=== PATIENT | female | born 1985 | race Caucasian/White ===

== ENCOUNTER 2019-11-08 16:39 | Emergency (ER) | payer OTHER, SELFPAY ==
[2019-11-08 16:40] VITALS: BP 109/71; PULSE 71; RESP 18; TEMP 36.8; O2SAT 100
--- NOTE | 2019-11-08 17:40 | ED.GENADULT ---
HPI - General Adult General Chief complaint: Extremity Injury, Upper <Bentley Wick PA-C - Last Filed: 11/08/19 17:43> Stated complaint: Bilateral arm pain <Bentley Wick PA-C - Last Filed: 11/08/19 17:43> Time Seen by Provider: 11/08/19 16:45 <Bentley Wick PA-C - Last Filed: 11/08/19 17:43> Source: patient and family <Bentley Wick PA-C - Last Filed: 11/08/19 17:43> Mode of arrival: ambulatory <Bentley Wick PA-C - Last Filed: 11/08/19 17:43> Limitations: no limitations <Bentley Wick PA-C - Last Filed: 11/08/19 17:43> History of Present Illness HPI narrative: Patient is a 33-year-old female who presents to emergency department for evaluation of bilateral upper extremity pain which is currently being evaluated by primary care had nerve conduction test performed by orthopedic surgery. Patient has been taking diclofenac with some improvement. Patient notes moderate aching pain to the bilateral upper extremities with some tingling. Patient denies new injury or trauma or change in degree of symptoms. Patient on arrival is in no distress <Bentley Wick PA-C - Last Filed: 11/08/19 17:43> Related Data Home medications: Home Medications Medication Instructions Recorded Confirmed diclofenac potassium 11/08/19 levothyroxine 11/08/19 <Bentley Wick PA-C - Last Filed: 11/08/19 17:43> Allergies/adverse reactions: Allergies Allergy/AdvReac Type Severity Reaction Status Date / Time No Known Drug Allergies Allergy Unknown Unknown Verified 11/08/19 16:47 <Bentley Wick PA-C - Last Filed: 11/08/19 17:43> Review of Systems Review of Systems: All systems reviewed & are unremarkable except as noted in HPI and below <Bentley Wick PA-C - Last Filed: 11/08/19 17:43> [facility] Social History Social History: Social History (Updated 11/08/19 @ 17:41 by Bentley Wick PA-C) Smoking status: Never smoker <ANATOLY Neely Last Filed: 11/08/19 17:43> Exam Narrative: Exam Narrative: GENERAL: Well-appearing, well-nourished, and in no acute distress. HEAD: Normocephalic, atraumatic. EYES: PERRLA and EOMI. ENT: Nares clear, no rhinorrhea or epistaxis. Mucous membranes moist. NECK: Supple. No adenopathy or masses. CHEST: Clear to auscultation. No respiratory distress. No wheezes rales or rhonchi HEART: Regular rate and rhythm. No murmur heard. Normal peripheral pulses. EXTREMITIES: Normal range of motion. No edema. SKIN: Warm, dry, no rash. NEURO: No focal deficits. Alert and oriented x3. Motor and sensory intact and symmetrical in the extremities. Neurovascularly intact PSYCH: Normal mood and affect. <ANATOLY Neely Last Filed: 11/08/19 17:43> Course Course Emergency Course: Patient in the room in no distress aware of case findings treatment plan and diagnosis agreeing to follow-up as directed or to return if symptoms worsen or concerns <ANATOLY Neely Last Filed: 11/08/19 17:43> Vital Signs Vital signs: Vital Signs Temperature 36.8 C 11/08/19 16:40 Pulse Rate 11/08/19 16:40 Respiratory Rate 18 11/08/19 16:40 Blood Pressure 109/71 11/08/19 16:40 Pulse Oximetry 100 11/08/19 16:40 Temperature 36.8 C 11/08/19 16:40 Pulse Rate 11/08/19 16:40 Respiratory Rate 18 11/08/19 16:40 Blood Pressure 109/71 11/08/19 16:40 Pulse Oximetry 100 11/08/19 16:40 <ANATOLY Neely Last Filed: 11/08/19 17:43> Vital Signs Temperature 36.8 C 11/08/19 16:40 Pulse Rate 71 11/08/19 16:40 Respiratory Rate 18 11/08/19 16:40 Blood Pressure 109/71 11/08/19 16:40 Pulse Oximetry 100 11/08/19 16:40 Temperature 36.8 C 11/08/19 16:40 Pulse Rate 71 11/08/19 16:40 Respiratory Rate 18 11/08/19 16:40 Blood Pressure 109/71 11/08/19 16:40 Pulse Oximetry 100 11/08/19 16:40 <Liz Lowery MD - Last Jairo
== END 2019-11-08 18:05 | disposition home or self-care (01) ==
PROVIDERS: Emergency Provider Emergency Medicine; PCP Family Medicine
DX: M79.602 Pain in left arm (principal); M79.601 Pain in right arm
CPT/HCPCS: 99283

== ENCOUNTER 2021-07-21 08:21 | Observation (INO) | payer OTHER, SELFPAY ==
[2021-07-21] VITALS (111 sets, daily range): BP systolic 90–102; BP diastolic 49–56; PULSE 72–115; RESP 16; TEMP 36.4–37.4; O2SAT 90–100; BMI 21.3
--- NOTE | ~2021-07-21 | US_ITS ---
US abdomen limited DATE: 07/21/2021 11:59 INDICATION: Abdominal pain. Elevated white blood cell count. TECHNIQUE: Real-time imaging of liver, pancreas, gallbladder, right lower quadrant COMPARISON: None FINDINGS: No hepatic space-occupying mass lesion. Normal hepatopedal portal venous flow direction. No pancreatic space-occupying mass lesion or pancreatic duct dilatation. No gallstones or gallbladder wall thickening. The technologist reports positive sonographic Richmond's sign. The common bile duct measures 5.4 mm, within normal range. The appendix is not visualized likely due to interference from bowel gas. IMPRESSION: Technologist reports positive sonographic [place] sign, but no gallstones or gallbladder w all thickening are identified. Common bile duct measures 5.4 mm, normal The appendix is not visualized likely due to interference from bowel gas; consider CT abdomen pelvis for more definitive evaluation of the appendix as clinically appropriate. Reviewed, dictated and finalized at [facility] Reviewed, dictated and finalized at [facility]. [employer] IMPRESSION: Technologist reports positive sonographic [place] sign, but no galls tones or gallbladder wall thickening are identified. Common bile duct measures 5.4 mm, normal The appendix is not visualized likely due to interference from bowel gas; consi karl CT abdomen pelvis for more definitive evaluation of the appendix as clinica lly appropriate.
--- NOTE | ~2021-07-21 | XR_ITS ---
XR chest 2V DATE: 07/21/2021 12:05 INDICATION: Shortness of breath, chest pressure. 22 weeks gestation. TECHNIQUE: PA and lateral views with abdominal and pelvic shielding COMPARISON: None FINDINGS: Mild patchy infiltrate is suggested in the mid and lower lung zones on PA view, not definit ioana confirmed on lateral projection. Differential diagnosis includes bilateral pneumonia, less likely pulmonary edema or possibly overlying breast density. Clinical correlation is advised. If clinically indicated, limited CT images through the thorax would be more definitive. Normal heart size. No hilar or mediastinal enlargement. No pleural effusion or pneumothorax. IMPRESSION: Possible bilateral mid and lower lung infiltrates versus overlapping breast density. Limi jose CT images through the thorax would be more definitive. Reviewed, dictated and finalized at [facility]. MACHINE OPERATOR IMPRESSION: Possible bilateral mid and lower lung infiltrates versus overlappin g breast density. Limited CT images through the thorax would be more definitive .
--- NOTE | 2021-07-21 08:20 | PC.NURSE ---
called ob, sent for lower abd/back pain at 22 weeks gestation
[2021-07-21] MEDS: LACTATED RINGERS 1,000 ML 125 ML IV CONT ×2 (09:23→15:33)
[2021-07-21] MEDS: ONDANSETRON INJ 4 MG/2 ML VIAL IV PUSH ×2 (09:24→15:32)
[2021-07-21 09:40] LABS: Basophils Absolute Auto 0.1 K/mm3 (0.0-0.1); Basophils Percent Auto 0.2 % (0.2-1.2); Eosinophils Percent Auto 0.1 % (0-4.4); Hematocrit 30.7 % (37.0-47.0); Hemoglobin 10.8 g/dL (12.0-15.0); Immature Granulocyte Absolute 0.46 K/mm3 (0.00-0.031); Immature Granulocyte Percent A 1.7 % (0-0.5); Lymphocytes Absolute Auto 1.64 K/mm3 (0.9-3.2); Mean Corpuscular HGB Conc 35.2 g/dl (32-36); Mean Corpuscular Hemoglobin 33.3 pg (26-34); Mean Corpuscular Volume 94.8 fl (80-100); Mean Platelet Volume 8.5 fl (7.4-10.4); Monocytes Absolute Auto 0.9 K/mm3 (0.1-0.6); Monocytes Percent Auto 3.3 % (2.6-8.5); Neutrophils Absolute Auto 24.4 K/mm3 (1.3-6.7); Neutrophils Percent Auto 88.7 % (45.5-73.1); Platelet Count Result 217 k/mm3 (150-375); Red Blood Count 3.24 M/mm3 (4.2-5.4); Red Cell Distribution Width 12.6 % (11.5-14.5); White Blood Count 27.5 K/mm3 (4.5-10.0)
[2021-07-21 09:43] LABS: Add Urine Microscopic? NO; Appearance Urine Clear (Clear); Bilirubin Urine Negative (Negative); Blood Urine Negative (Negative); Color Urine Yellow (Yellow); Glucose Urine UA Negative (Negative); Ketones Urine Negative (Negative); Leukocyte Esterase Ur Negative LEU/UL (Negative); Nitrate Urine Negative (Negative); Protein Urine Negative (Negative); Specific Grav Ur 1.011 (1.001-1.035); Urobilinogen Urine Negative mg/dL (<2.0)
--- NOTE | 2021-07-21 09:43 | OBADM ---
This patient, Sherrill Samson, admitted to the OB room OB Post 116 for observation. Patient/family oriented to hospital policies and general routines including ID bracelet, bed and alarms, visiting hours, pain management, procedures, bathroom and other care routines, personal items, smoking policy, room service/diet, and visiting hours. Patient/Family are encouraged to report perceived risks to care and to ask questions if they do not understand what they are told or what they should do.
[2021-07-21 09:51] LABS: Alanine Aminotransferase 17 U/L (4-35); Alkaline Phosphatase 73 U/L (38-126); Anion Gap 5 mmol/L (8-16); Aspartate Amino Transferase 27 U/L (14-36); Bilirubin,Total 0.4 mg/dL (0.2-1.3); Blood Urea Nitrogen 9 mg/dL (7-17); Calcium 8.4 mg/dL (8.4-10.2); Carbon Dioxide 20 mmol/L (22-30); Chloride 108 mmol/L (98-107); Estimated Glomerular Filt Rate > 60; Glucose 115 mg/dL (65-110); Potassium 3.3 mmol/L (3.4-5.0); Sodium 133 mmol/L (137-145)
--- NOTE | 2021-07-21 10:07 | PC.NURSE ---
0852--Reported pt symptoms to Dr. Grey. Orders received.
--- NOTE | 2021-07-21 10:08 | PC.NURSE ---
0855--Pt c/o abdominal cramping (upper and lower,) back pain, vomiting since MN, and shortness of breath. VSS O2-100%, HR-89 temp-97.6
[2021-07-21 10:17] LABS: SARS-CoV-2 RNA PCR Negative
--- NOTE | 2021-07-21 11:19 | PC.NURSE ---
1115--to US per wheelchair.
--- NOTE | 2021-07-21 12:56 | PM.IMHP ---
H&P: HPI History of Present Illness Date/Time: 07/21/21 12:56 35-year-old female presents 22 weeks gestation. Does complain over the last 12-24 hours nausea vomiting abdominal pain as well as some shortness of breath and chest pain as well. Denies fever chills or any other significant GI or symptomatology. She has had movement no uterine contractions and no vaginal bleeding. Chief Complaint: Nausea vomiting. Shortness of breath. Review of Systems Review of Systems: All systems reviewed & are unremarkable except as noted in HPI and below PMFSH Past Medical History Medical History Sean-Danlos disease Encounter for IUD insertion 12/18/17 leonardo insertion 12/28/20 leonardo removal Kidney stones Migraines Stomach ulcer Surgical History Surgical History H/O cystoscopy 07/28/19 History of carpal tunnel surgery x3 Family History Family History Grandparent Cerebrovascular accident paternal grandmother paternal grandfather maternal grandmother maternal grandfather Mother Multiple sclerosis Cervical cancer Other Family history of depression Social History Social History (Updated 11/08/19 @ 17:41 by Bentley Wick PA-C) Smoking status: Never smoker Meds Home Medications and Allergies Home Medications Medication Instructions Recorded Confirmed Type levothyroxine 11/08/19 History vitamins-iron fumarate 65 1 tablet PO DAILY 07/05/21 07/05/21 History mg iron-folic acid 1 mg tablet Allergies Allergy/AdvReac Type Severity Reaction Status Date / Time doxycycline AdvReac Unknown Other Verified 07/05/21 11:04 Vital Signs Vital Signs - 24 hr 07/21/21 08:31 07/21/21 08:36 07/21/21 08:41 Pulse Rate 93 Respiratory Rate Blood Pressure 99/56 L Pulse Oximetry 100 100 100 07/21/21 08:48 07/21/21 08:53 07/21/21 08:58 Pulse Rate Respiratory Rate Blood Pressure Pulse Oximetry 98 99 98 07/21/21 09:00 07/21/21 09:03 07/21/21 09:08 Pulse Rate 89 Respiratory Rate 16 Blood Pressure Pulse Oximetry 100 98 100 07/21/21 09:13 07/21/21 09:18 07/21/21 09:23 Pulse Rate Respiratory Rate Blood Pressure Pulse Oximetry 100 100 100 07/21/21 09:28 07/21/21 09:33 07/21/21 09:35 Pulse Rate 83 Respiratory Rate Blood Pressure 91/50 L Pulse Oximetry 100 100 07/21/21 09:38 07/21/21 09:43 07/21/21 09:48 Pulse Rate Respiratory Rate Blood Pressure Pulse Oximetry 100 100 100 07/21/21 09:53 07/21/21 09:58 07/21/21 10:00 Pulse Rate 100 Respiratory Rate Blood Pressure 100/50 L Pulse Oximetry 98 93 07/21/21 10:03 07/21/21 10:08 07/21/21 10:13 Pulse Rate Respiratory Rate Blood Pressure Pulse Oximetry 90 94 97 07/21/21 10:18 07/21/21 10:23 07/21/21 10:25 Pulse Rate Respiratory Rate Blood Pressure Pulse Oximetry 98 99 98 07/21/21 10:29 07/21/21 10:30 07/21/21 10:34 Pulse Rate 93 Respiratory Rate Blood Pressure 102/54 L Pulse Oximetry 100 100 07/21/21 10:39 07/21/21 10:44 07/21/21 10:49 Pulse Rate Respiratory Rate Blood Pressure Pulse Oximetry 100 99 99 07/21/21 10:54 07/21/21 10:59 07/21/21 11:00 Pulse Rate 90 Respiratory Rate Blood Pressure 95/53 L Pulse Oximetry 98 97 07/21/21 11:04 07/21/21 11:09 07/21/21 12:13 Pulse Rate Respiratory Rate Blood Pressure Pulse Oximetry 99 96 99 07/21/21 12:18 07/21/21 12:23 07/21/21 12:28 Pulse Rate Respiratory Rate Blood Pressure Pulse Oximetry 100 99 99 07/21/21 12:33 07/21/21 12:38 07/21/21 12:43 Pulse Rate Respiratory Rate Blood Pressure Pulse Oximetry 98 99 99 07/21/21 12:48 07/21/21 12:53 Pulse Rate Respiratory Rate Blood Pressure
--- NOTE | 2021-07-21 13:29 | PC.NURSE ---
1327--reported pt information to Hospitalist office.
--- NOTE | 2021-07-21 16:27 | PM.IMCN ---
Assessment and Plan Assessment and plan (1) Pneumonia affecting : Code(s): O99.519 - Diseases of the respiratory system complicating , unspecified trimester; J18.9 - Pneumonia, unspecified organism Status: Acute Assessment and Plan: patient's white count is 27.5. She states that she is not coughing anything up. I did order an inhaler of albuterol and azithromycin and Rocephin per community-acquired antibiotic stewardship. I consulted pharmacy to determine if he has antibiotics could be given it at 22 weeks gestation. According to the latest research it is susceptible to the antibiotics. I explained to the patient that her white count is highly elevated and I did not feel comfortable discharging her to home. (2) Hypothyroidism: Code(s): E03.9 - Hypothyroidism, unspecified Status: Chronic Assessment and Plan: Continue with home medication. HPI Data of Consult Consult date: 07/21/21 Requesting Physician: Collin Grey MD Primary Care Provider: Ganesh Lau, Consult Narrative Narrative: Sherrill Samson is a 35 year old female this is a 35-year-old female patient. She is 6 para 2. And is 22 weeks gestation. The patient came into the hospital yesterday due to severe nausea and vomiting abdominal pain. She also felt chest discomfort and heaviness to her chest. She denies any fever chills at that time. Node symptoms. No fever chills. Patient stated that she recently tested for COVID she was negative. She has had movement and no uterine contractions and no vaginal bleeding. Chest x-ray was read as possible bilateral mid and lower lung infiltrates versus overlapping breast densities. Limited CT images through the thorax would be more definitive. However the patient is at this time and this does not sound like a feasible plan. The patient's white count is noted to be 27.5. H&H is 10.8 and 30.7. Sodium 133, potassium 3.3, chloride 108, carbon dioxide 20. According to our community-acquired pneumonia stewardship azithromycin And Rocephin is the choice of antibiotics. I discussed the case with pharmacy after I reviewed medications formulary. Pharmacy agreed that these 2 antibiotics should be safe for a 22 weeks gestation . The patient appears ill. I did start her on IV antibiotics. Patient's white count is 27.5. I do not feel comfortable with sending the patient home today as her white count is highly elevated. The patient initially was admitted for observation and we were consulted today on 07/21/2021. Review of Systems Review of Systems: All systems reviewed & are unremarkable except as noted in HPI and below Constitutional: Constitutional: Reports as per HPI and Reports no additional constitutional complaints Eyes: Eyes: Reports as per HPI and Reports no additional eye complaints ENT: Reports system reviewed and no additional complaints, except as documented and Reports Normal hearing present Cardiovascular: Cardiovascular: Reports no additional cardiovascular complaints Respiratory: Respiratory: Reports no additional respiratory complaints and Reports no additional respiratory complaints Gastrointestinal: Gastrointestinal: Reports as per HPI and Reports no additional gastrointestinal complaints Musculoskeletal: Musculoskeletal: Reports no additional musculoskeletal complaints Integumentary/Breasts: Skin/Breast: Reports system reviewed and no additional complaints, except as docu and Reports as per HPI Neurologic: Reports system reviewed and no additional complaints, except as documented, Reports as per HPI and Reports Normal hearing present Psychiatric: Psychiatric: Reports no additional psychiatric complaints and Reports as per HPI Endocrine: Endocrine: Reports no additional endocrine complaints Hematologic/Lymphatic: Hematologic/Lymphatic: Reports no additional hematologic/lymphatic complaints Allergic/Immun
--- NOTE | 2021-07-21 17:26 | PC.NURSE ---
1450--HOSPITALIST AT BEDSIDE. PLAN OF CARE DISCUSSED.
[2021-07-21] MEDS: ACETAMINOPHEN 500 MG TABLET 1000 MG PO (18:15)
[2021-07-21] MEDS: FAMOTIDINE 20 MG TABLET PO (20:20)
[2021-07-21] MEDS: ZOLPIDEM TARTRATE (*CRX) 5 MG TABLET PO (20:33)
[2021-07-22] VITALS (39 sets, daily range): BP systolic 81–97; BP diastolic 47–60; PULSE 74–102; RESP 18; TEMP 36.8–37.3; O2SAT 97–100
[2021-07-22 07:54] LABS: Basophils Absolute Auto 0.1 K/mm3 (0.0-0.1); Basophils Percent Auto 0.4 % (0.2-1.2); Eosinophils Absolute Auto 0.2 K/mm3 (0-0.3); Eosinophils Percent Auto 1.4 % (0-4.4); Hematocrit 26.9 % (37.0-47.0); Hemoglobin 9.2 g/dL (12.0-15.0); Immature Granulocyte Absolute 0.16 K/mm3 (0.00-0.031); Immature Granulocyte Percent A 1.1 % (0-0.5); Lymphocytes Absolute Auto 2.55 K/mm3 (0.9-3.2); Mean Corpuscular HGB Conc 34.2 g/dl (32-36); Mean Corpuscular Hemoglobin 33.8 pg (26-34); Mean Corpuscular Volume 98.9 fl (80-100); Mean Platelet Volume 8.6 fl (7.4-10.4); Monocytes Absolute Auto 0.7 K/mm3 (0.1-0.6); Monocytes Percent Auto 4.9 % (2.6-8.5); Neutrophils Absolute Auto 11.3 K/mm3 (1.3-6.7); Neutrophils Percent Auto 75.2 % (45.5-73.1); Platelet Count Result 242 k/mm3 (150-375); Red Blood Count 2.72 M/mm3 (4.2-5.4); Red Cell Distribution Width 13.2 % (11.5-14.5)
[2021-07-22 08:07] LABS: Alanine Aminotransferase 17 U/L (4-35); Alkaline Phosphatase 68 U/L (38-126); Anion Gap 9 mmol/L (8-16); Aspartate Amino Transferase 25 U/L (14-36); Bilirubin,Total 0.5 mg/dL (0.2-1.3); Blood Urea Nitrogen 11 mg/dL (7-17); CRP 6.3 mg/dL (<1.0); Calcium 8.1 mg/dL (8.4-10.2); Carbon Dioxide 21 mmol/L (22-30); Chloride 105 mmol/L (98-107); Estimated Glomerular Filt Rate > 60; Glucose 81 mg/dL (65-110); Lactate Dehydrogenase 324 U/L (313-618); Magnesium 2.1 mg/dL (1.6-2.3); Potassium 3.7 mmol/L (3.4-5.0); Sodium 135 mmol/L (137-145)
[2021-07-22 08:13] LABS: Lactic Acid Reflex < 0.5 mmol/L (0.7-2.1)
--- NOTE | 2021-07-22 10:06 | PM.OBDSVD ---
DS: Admitting Diagnosis Discharge Date 07/22/2021 Admitting Diagnosis /SOB OB - DS: Summary OB Procedures : None OB Procedures Intrapartum: Other OB Procedures: : None Time Spent with Patient Time attestation: Total time spent providing and/or coordinating discharge services: DS: Data Data Completed and Pending Labs on day of discharge: Labs from last 24 hours 07/22/21 07/22/21 07/22/21 07:27 07:27 07:27 WBC RBC Hgb Hct MCV MCH MCHC RDW Plt Count MPV Immature Gran % (Auto) Neut % (Auto) Lymph % (Auto) [place] % (Auto) Eos % (Auto) Baso % (Auto) Lymph # (Auto) [place] # (Auto) Eos # (Auto) Baso # (Auto) Abs Immat Gran (auto) Absolute Neuts (auto) Absolute Nucleated RBC Nucleated RBC % Sodium 135 L Potassium 3.7 Chloride 105 Carbon Dioxide 21 L Anion Gap 9 BUN 11 Creatinine 0.60 L Estim Creat Clear Calc Not Reportable Estimated GFR > 60 Glucose 81 Lactic Acid < 0.5 L Calcium 8.1 L Magnesium 2.1 Ferritin Pending Total Bilirubin 0.5 AST 25 ALT 17 Alkaline Phosphatase 68 Lactate Dehydrogenase 324 C-Reactive Protein 6.3 H Total Protein 6.0 L Albumin 3.0 L TSH (Reflex) 2.920 SARS-CoV-2 RNA (RT-PCR) 07/22/21 07/21/21 07:27 09:27 WBC 15.0 H RBC 2.72 L Hgb 9.2 L Hct 26.9 L MCV 98.9 MCH 33.8 MCHC 34.2 RDW 13.2 Plt Count 242 MPV 8.6 Immature Gran % (Auto) 1.1 H Neut % (Auto) 75.2 H Lymph % (Auto) 17.0 L [place] % (Auto) 4.9 Eos % (Auto) 1.4 Baso % (Auto) 0.4 Lymph # (Auto) 2.55 [place] # (Auto) 0.7 H Eos # (Auto) 0.2 Baso # (Auto) 0.1 Abs Immat Gran (auto) 0.16 H Absolute Neuts (auto) 11.3 H Absolute Nucleated RBC 0.0 Nucleated RBC % 0.0 Sodium Potassium Chloride Carbon Dioxide Anion Gap BUN Creatinine Estim Creat Clear Calc Estimated GFR Glucose Lactic Acid Calcium Magnesium Ferritin Total Bilirubin AST ALT Alkaline Phosphatase Lactate Dehydrogenase C-Reactive Protein Total Protein Albumin TSH (Reflex) SARS-CoV-2 RNA (RT-PCR) Negative Discharge Plan Discharge Consulting providers: Jane Decker ; Yoni Bertrand Discharging Clinician: Collin Grey Patient Disposition: Home, Self-Care Activity: as tolerated Diet: as tolerated Patient Instructions: Antibiotic Form Stand Alone Forms: General Discharge Information Follow-up/Referrals: Collin Grey MD [Physician] - 2 Weeks Discharge Medications: New albuterol sulfate [Proventil HFA] 90 mcg/actuation Hfa Aerosol Inhaler 2 puff inhalation Q6HRT PRN (Reason: Shortness Of Breath) Qty: 1 RF: 0 amoxicillin-pot clavulanate [Augmentin XR] 1,000-62.5 mg tablet extended release 12 hr 1 tablet PO Q12H Qty: 20 RF: 0 Continued vit-iron fum-folic ac 65 mg iron- 1 mg tablet 1 tablet PO DAILY RF: 0 levothyroxine 50 mcg tablet RF: 0 Date of admission: 07/21/21 08:21 Primary Care Provider: Sid,Ganesh Westfall Admitting Provider: Collin Grey Attending physician on admission: Collin Grey Condition: Stable
--- NOTE | 2021-07-22 10:22 | PC.NURSE ---
0940--Hospitalist at bedside to discuss plan of care. DC orders given.
--- NOTE | 2021-07-22 10:24 | PC.NURSE ---
1005--Dr. Grey at bedside. Pt reports feeling much improved. Plan of care discussed with discharge plan in place.
--- NOTE | 2021-07-22 10:39 | PM.IMPN ---
Progress Note: A&P Assessment and Plan (1) Pneumonia affecting : Code(s): O99.519 - Diseases of the respiratory system complicating , unspecified trimester; J18.9 - Pneumonia, unspecified organism Status: Acute Assessment and Plan: -leukocytosis of 27.5 on admission, CXR suggestive of pneumonia -discussed treatment options with pharmacist, pt was started on azithromycin, rocephin, and albuterol -today leukocytosis is dramatically improved and is no 15 -she is feeling much better and from my standpoint is stable for discharge home on Augmentin to complete treatment of her pneumonia (2) Hypothyroidism: Code(s): E03.9 - Hypothyroidism, unspecified Status: Chronic Assessment and Plan: Continued with home medication. Subjective Date/time seen: 07/22/21 10:00 Interval history: 35-year-old female patient. She is 6 para 2, 22 weeks gestation. She was admitted to OB service for N/V/abd pain/cp, and was found to have pneumonia and significant leukocytosis. Hospitalist service was consulted for treatment of her pneumonia. Today patient feels much better. Her chest discomfort has resolved. No cough or fever. Review of Systems Review of Systems: All systems reviewed & are unremarkable except as noted in HPI and below Exam Narrative: General: No acute distress, non toxic appearing Eyes: PERRL, no scleral icterus HEENT: NCAT, external ears normal, MMM Respiratory: No respiratory distress, Lungs CTA bilaterally, no wheezing Cardiovascular: RRR, no murmur Abdominal: 22 weeks gestation, nontender, no rebound or guarding Musculoskeletal: Moves all 4 extremities, no edema Neurological: A/Ox3, speech normal, no facial asymmetry Skin: Warm, dry, no rashes Psychiatric: Normal affect, normal mood Objective Data Vital Signs Vital Signs: Vital Signs - 24 hr 07/21/21 10:44 07/21/21 10:49 07/21/21 10:54 Temperature Pulse Rate Respiratory Rate Blood Pressure Pulse Oximetry 99 99 98 07/21/21 10:59 07/21/21 11:00 07/21/21 11:04 Temperature Pulse Rate 90 Respiratory Rate Blood Pressure 95/53 L Pulse Oximetry 97 99 07/21/21 11:09 07/21/21 12:13 07/21/21 12:18 Temperature Pulse Rate Respiratory Rate Blood Pressure Pulse Oximetry 96 99 100 07/21/21 12:23 07/21/21 12:28 07/21/21 12:33 Temperature Pulse Rate Respiratory Rate Blood Pressure Pulse Oximetry 99 99 98 07/21/21 12:38 07/21/21 12:43 07/21/21 12:48 Temperature Pulse Rate Respiratory Rate Blood Pressure Pulse Oximetry 99 99 99 07/21/21 12:53 07/21/21 12:58 07/21/21 13:03 Temperature Pulse Rate Respiratory Rate Blood Pressure Pulse Oximetry 100 100 100 07/21/21 13:08 07/21/21 13:13 07/21/21 13:18 Temperature Pulse Rate Respiratory Rate Blood Pressure Pulse Oximetry 97 100 100 07/21/21 13:23 07/21/21 13:28 07/21/21 13:33 Temperature Pulse Rate Respiratory Rate Blood Pressure Pulse Oximetry 100 98 99 07/21/21 13:38 07/21/21 13:43 07/21/21 13:48 Temperature Pulse Rate Respiratory Rate Blood Pressure Pulse Oximetry 97 98 99 07/21/21 13:53 07/21/21 13:58 07/21/21 14:03 Temperature Pulse Rate Respiratory Rate Blood Pressure Pulse Oximetry 99 98 99 07/21/21 14:08 07/21/21 14:13 07/21/21 14:18 Temperature Pulse Rate Respiratory Rate Blood Pressure Pulse Oximetry 100 99 100 07/21/21 14:23 07/21/21 14:28 07/21/21 14:33 Temperature Pulse Rate Respiratory Rate Blood Pressure Pulse Oximetry 100 98 100 07/21/21 14:38 07/21/21 14:43 07/21/21 14:48 Temperature Pulse Rate Respiratory Rate Blood Pressure Pulse Oximetry 100 100 100 07/21/21 14:53 07/21/21 14:58 07/21/21 15:03 Temperature Pulse Rate Respiratory Rate Blood Pressure Pu
[2021-07-22] MEDS: ACETAMINOPHEN 500 MG TABLET 1000 MG PO (14:41)
[2021-07-22] MEDS: LACTATED RINGERS 1,000 ML 125 ML IV CONT (15:11)
[2021-07-22] MEDS: ONDANSETRON INJ 4 MG/2 ML VIAL (15:58)
== END 2021-07-22 18:12 | disposition home or self-care (01) ==
PROVIDERS: Nurse Practitioner; Admitting Provider Obstetrics & Gynecology; PCP Family Medicine; Visit Provider Obstetrics & Gynecology
DX: O99.512 Diseases of the respiratory system complicating pregnancy, second trimester (principal); J18.9 Pneumonia, unspecified organism; O21.9 Vomiting of pregnancy, unspecified; Q79.60 Ehlers-Danlos syndrome, unspecified; Z3A.22 22 weeks gestation of pregnancy; Z20.822 Contact with and (suspected) exposure to COVID-19
CPT/HCPCS: 36415; 71046; 76705; 80053; 81003; 82728; 83605; 83615; 83735; 84443; 85025; 86140; 96361; 96365; 96367; 96374; 96375; A9270; C9803; G0378; G0379; J0456; J0696; J2405; J7120; U0003; U0005

== ENCOUNTER 2021-09-21 14:40 | Outpatient (CLI) | payer OTHER, SELFPAY ==
[2021-09-21 15:00] LABS: Bilirubin Urine Negative (Negative); Color Urine Yellow (Yellow); Glucose Urine UA Negative (Negative); Ketones Urine Negative (Negative); Leukocyte Esterase Ur Negative LEU/UL (NEGATIVE); Nitrate Urine Negative (Negative); Protein Urine Negative (Negative); Specific Grav Ur >= 1.030 (1.001-1.035); Urobilinogen Urine 0.2 mg/dL (<2.0); pH Urine 6.5 (5.0-9.0)
[2021-09-21 15:13] LABS: Add Urine Microscopic? YES; Appearance Urine Sl Cloudy (Clear); Blood Urine Trace-Intact (Negative)
== END 2021-09-21 14:41 | disposition home or self-care (01) ==
LOC: ANHLAB 14:42
PROVIDERS: PCP Family Medicine; Visit Provider Obstetrics & Gynecology
DX: R30.0 Dysuria (principal)
CPT/HCPCS: 81001; 87086

== ENCOUNTER 2021-11-12 13:47 | Observation (INO) | payer OTHER, SELFPAY ==
[2021-11-12] VITALS (10 sets, daily range): BP systolic 88–104; BP diastolic 57–68; PULSE 83–113; BMI 26.6
--- NOTE | 2021-11-12 14:17 | OBADM ---
This patient, Sherrill Connorasher, admitted to the OB room Labor/Delivery/Recovery 105 for observation. Patient/family oriented to hospital policies and general routines including ID bracelet, bed and alarms, visiting hours, pain management, procedures, bathroom and other care routines, personal items, smoking policy, room service/diet, and visiting hours. Patient/Family are encouraged to report perceived risks to care and to ask questions if they do not understand what they are told or what they should do.
[2021-11-12 14:49] LABS: Add Urine Microscopic? NO; Appearance Urine Clear (Clear); Bilirubin Urine Negative (Negative); Blood Urine Negative (Negative); Color Urine Yellow (Yellow); Glucose Urine UA Negative (Negative); Ketones Urine Negative (Negative); Leukocyte Esterase Ur Negative LEU/UL (Negative); Nitrate Urine Negative (Negative); Protein Urine Negative (Negative); Specific Grav Ur 1.015 (1.001-1.035); Urobilinogen Urine 0.2 mg/dL (<2.0); pH Urine 6.5 (5.0-9.0)
--- NOTE | 2021-11-15 08:06 | P.PNOB_ITS ---
OB - Triage/Final Diagnosis Visit Information Comments/Additional reasons for admission: I have assessed the risk for this patient, Sherrill Samson, and determined that she would benefit from observation care. Evaluation Laboratory results: Laboratory Tests 11/12/21 14:41 Urine Color Yellow Urine Appearance Clear Urine pH 6.5 Ur Specific [place] 1.015 Urine Protein Negative Urine Glucose (UA) Negative Urine Ketones Negative Ur Blood (Man) Negative Urine Nitrate Negative Urine Bilirubin Negative Urine Urobilinogen 0.2 Leukocyte Esterase Rfl Negative Final Diagnosis (1) Abdominal pain affecting : Code(s): O26.899 - Other specified related conditions, unspecified trimester; R10.9 - Unspecified abdominal pain Status: Acute
== END 2021-11-12 16:32 | disposition home or self-care (01) ==
PROVIDERS: Admitting Provider Obstetrics & Gynecology; PCP Family Medicine; Visit Provider Obstetrics & Gynecology
DX: O26.899 Other specified pregnancy related conditions, unspecified trimester (principal); R10.9 Unspecified abdominal pain; Z3A.00 Weeks of gestation of pregnancy not specified
CPT/HCPCS: 81003; G0378; G0379

== ENCOUNTER 2021-11-16 16:00 | Inpatient (IN) | payer OTHER, SELFPAY ==
[2021-11-16] VITALS (20 sets, daily range): BP systolic 85–112; BP diastolic 38–70; PULSE 76–186; TEMP 36.5; O2SAT 100; BMI 26.6
[2021-11-16 16:37] LABS: Basophils Percent Auto 0.3 % (0.2-1.2); Eosinophils Absolute Auto 0.2 K/mm3 (0-0.3); Eosinophils Percent Auto 1.3 % (0-4.4); Hematocrit 30.7 % (37.0-47.0); Hemoglobin 10.7 g/dL (12.0-15.0); Immature Granulocyte Absolute 0.24 K/mm3 (0.00-0.031); Immature Granulocyte Percent A 1.9 % (0-0.5); Lymphocytes Absolute Auto 1.72 K/mm3 (0.9-3.2); Lymphocytes Percent Auto 13.8 % (18.3-44.2); Mean Corpuscular HGB Conc 34.9 g/dl (32-36); Mean Corpuscular Hemoglobin 33.4 pg (26-34); Mean Corpuscular Volume 95.9 fl (80-100); Mean Platelet Volume 8.9 fl (7.4-10.4); Monocytes Absolute Auto 0.8 K/mm3 (0.1-0.6); Monocytes Percent Auto 6.8 % (2.6-8.5); Neutrophils Absolute Auto 9.4 K/mm3 (1.3-6.7); Neutrophils Percent Auto 75.9 % (45.5-73.1); Platelet Count Result 229 k/mm3 (150-375); Red Cell Distribution Width 13.6 % (11.5-14.5); White Blood Count 12.4 K/mm3 (4.5-10.0)
--- NOTE | 2021-11-16 16:42 | LDADM ---
This patient, Sherrill Samson, was admitted to Labor/Delivery/Recovery 105 on 11/16/21 at 16:00. Plans for labor, pain management and were discussed with patient. Patient/family oriented to hospital policies and general routines including ID bracelet, bed and alarms, visiting hours, pain management, procedures, bathroom and other care routines, personal items, smoking policy, room service/diet and guest tray routines, infant security routines, and visiting hours. Patient/Family are encouraged to report perceived risks to care and to ask questions if they do not understand what they are told or what they should do. See [facility] for further documentation.
[2021-11-16 17:29] LABS: HIV 1/2 Ab P24 Ag Result Negative (Negative)
[2021-11-16] MEDS: DINOPROSTONE 10 MG VAG INSERT VAGINAL (17:44)
--- NOTE | 2021-11-16 17:44 | WPDANESEPP ---
Anes - Eval Pre Procedure Procedure: Labor epidural Date/Time: 11/16/21 17:44 Surgeon: monika Preop Diagnosis: pain during labor Pre Op Diagnosis: Induction of Labor Patient Data Age: 35 Gender: F Height: 1.5 m Weight: 60 kg Last Vital Signs Temp 36.5 C 11/16/21 16:30 Pulse 87 11/16/21 17:30 BP 106/57 L 11/16/21 17:30 O2 Del Method Room Air 11/16/21 16:35 Allergies Allergy/AdvReac Type Severity Reaction Status Date / Time doxycycline AdvReac Unknown Other Verified 11/16/21 16:29 Home Medications Medication Instructions Recorded Confirmed Type levothyroxine 50 mcg tablet 50 mcg PO DAILY 11/08/19 11/16/21 History vitamins-iron fumarate 65 1 tablet PO DAILY 07/05/21 11/16/21 History mg iron-folic acid 1 mg tablet albuterol sulfate 90 mcg/actuation 2 puff inhalation Q6HRT PRN 07/22/21 11/14/21 Rx aerosol inhaler (Proventil HFA) Shortness Of Breath #1 g docusate sodium 100 mg capsule 100 mg PO BID #60 caps 09/07/21 11/16/21 Rx (Colace) famotidine 20 mg tablet 20 mg PO DAILY #90 tabs 09/07/21 11/16/21 Rx ferrous sulfate 325 mg (65 mg 325 mg PO BID #120 tabs 09/07/21 11/16/21 Rx iron) tablet Laboratory Tests 11/16/21 11/16/21 11/16/21 16:17 16:17 16:17 WBC 12.4 K/mm3 H K/mm3 (4.5-10.0) RBC 3.20 M/mm3 L M/mm3 (4.2-5.4) Hgb 10.7 g/dL L g/dL (12.0-15.0) Hct 30.7 % L % (37.0-47.0) MCV 95.9 fl fl (80-100) MCH 33.4 pg pg (26-34) MCHC 34.9 g/dl g/dl (32-36) RDW 13.6 % % (11.5-14.5) Plt Count 229 k/mm3 k/mm3 (150-375) MPV 8.9 fl fl (7.4-10.4) Immature Gran % (Auto) 1.9 % H % (0-0.5) Neut % (Auto) 75.9 % H % (45.5-73.1) Lymph % (Auto) 13.8 % L % (18.3-44.2) [place] % (Auto) 6.8 % % (2.6-8.5) Eos % (Auto) 1.3 % % (0-4.4) Baso % (Auto) 0.3 % % (0.2-1.2) Lymph # (Auto) 1.72 K/mm3 K/mm3 (0.9-3.2) [place] # (Auto) 0.8 K/mm3 H K/mm3 (0.1-0.6) Eos # (Auto) 0.2 K/mm3 K/mm3 (0-0.3) Baso # (Auto) 0.0 K/mm3 K/mm3 (0.0-0.1) Abs Immat Gran (auto) 0.24 K/mm3 H K/mm3 (0.00-0.031) Absolute Neuts (auto) 9.4 K/mm3 H K/mm3 (1.3-6.7) Absolute Nucleated RBC 0.0 K/mm3 K/mm3 (0.0-0.012) Nucleated RBC % 0.0 % % (0.0-0.2) RPR Pending HIV 1&2 Ab/P24 Ag 4thGn Negative (Negative) Blood Type Antibody Screen 11/16/21 16:17 WBC RBC Hgb Hct MCV MCH MCHC RDW Plt Count MPV Immature Gran % (Auto) Neut % (Auto) Lymph % (Auto) [place] % (Auto) Eos % (Auto) Baso % (Auto) Lymph # (Auto) [place] # (Auto) Eos # (Auto) Baso # (Auto) Abs Immat Gran (auto) Absolute Neuts (auto) Absolute Nucleated RBC Nucleated RBC % RPR HIV 1&2 Ab/P24 Ag 4thGn Blood Type A Negative Antibody Screen Pending Patient hx anesthesia problems: none Family hx anesthesia problems: none Results Review: All pre-operative results and documents have been reviewed as part of the pre-operative evaluation. [facility] Past Medical History Medical History (Updated 11/15/21 @ 08:06 by Stacey Castano MD) Sean-Danlos disease Encounter for IUD insertion 12/18/17 leonardo insertion 12/28/20 leonardo removal History of hypotension History of tachycardia Hypothyroidism Kidney stones Migraines Rh incompatibility Stomach ulcer Ulnar nerve compression with released. Surgical History Surgical History (Updated 07/21/21 @ 17:15 by Collette Lewis NP) H/O cystoscopy 07/28/19 H/O dilation and curettage History of carpal tunnel surgery x3 History of extraction of renal calculus Family History Family History (Reviewed 07/21/21 @
[2021-11-16 19:15] LABS: Hepatitis B Surface Antigen Negative (Negative)
[2021-11-16 19:40] LABS: Amphetamine Screen Urine Negative (Negative); Barbiturate Screen Urine Negative (Negative); Benzodiazepines Screen Urine Negative (Negative); Cannabinoid Screen Urine Positive (Negative); Cocaine Screen Urine Negative (Negative); Methadone Screen Urine Negative (Negative); Opiate Screen Urine Negative (Negative); Phencyclidine Screen Urine Negative (Negative)
[2021-11-16] MEDS: LACTATED RINGERS 1,000 ML 125 ML IV CONT (23:40)
[2021-11-17] VITALS (190 sets, daily range): BP systolic 77–114; BP diastolic 41–95; PULSE 29–133; RESP 16; TEMP 36.2–37; O2SAT 74–100
[2021-11-17] MEDS: LACTATED RINGERS 1,000 ML 125 ML IV CONT ×2 (00:24→03:35)
[2021-11-17] MEDS: OXYTOCIN 30 UNITS/NS 500 ML 30 UNITS/500 ML BAG IV CONT (05:37)
[2021-11-17] MEDS: ONDANSETRON INJ 4 MG/2 ML VIAL IV PUSH (05:44)
[2021-11-17 06:10] LABS: Rapid Plasma Reagin Non-Reactive (NonReactive)
--- NOTE | 2021-11-17 12:11 | PM.OBPRVD ---
OB - Delivery Note Procedure Delivery date: 11/17/21 Induction method: Per Cervidil Protocol Delivery augmentation: Rupture of Membranes and Pitocin Delivery monitor: External FHT and External Uterine Route of delivery: Episiotomy description: None Laceration Description: None Specimen: No Quantitative Blood Loss (ml): 200 Anesthesia type: Epidural Disposition: Floor Complications: None Narrative: Patient prepped and draped in usual manner for this procedure. Maternal expulsive efforts readily delivered vertex rest baby was the without difficulty. Cord clamped cut as it was noted to be nuchal at the time of delivery. Placenta then delivered without difficulty and the uterus was well contracted. Cervix vagina vulva were inspected with no lacerations or tears. Patient is in recovery room in stable condition. [place] Baby Weeks of gestation at delivery: 39 Infant gender: Male Weight (pounds): 8 Weight (ounces): 4 presentation: vertex Placenta delivery description: Spontaneous Cord Vessel Description: 3 Vessels score one minute: 8 score five minutes: 9 AMG Delivery Billing Delivery Delivery: Delivery Charge
[2021-11-17] MEDS: OXYTOCIN 30 UNITS/NS 500 ML 30 UNITS/500 ML BAG 125 UNITS IV CONT (12:12)
[2021-11-17] MEDS: IBUPROFEN 600 MG TABLET PO (13:00)
[2021-11-17] MEDS: BENZOCAINE 20% AER SPR (*SP) 56 GM CAN 1 SPRAY TOPICAL (13:30)
[2021-11-17] MEDS: WITCH HAZEL 40 PADS 1 PAD TOPICAL (13:30)
[2021-11-17] MEDS: ACETAMINOPHEN 325 MG TABLET 650 MG PO (22:58)
[2021-11-18 05:13] LABS: Hematocrit 32.3 % (37.0-47.0)
[2021-11-18] MEDS: ACETAMINOPHEN 325 MG TABLET 650 MG PO ×2 (07:20→14:03)
[2021-11-18] MEDS: DOCUSATE SODIUM 100 MG CAPSULE PO (07:21)
[2021-11-18] MEDS: MULTIVIT/MIN/PREN/FOL AC/IRON TABLET 1 TAB PO (07:21)
[2021-11-18] MEDS: LEVOTHYROXINE SODIUM 50 MCG TABLET PO (07:22)
[2021-11-18] MEDS: IBUPROFEN 600 MG TABLET PO ×2 (07:22→14:03)
[2021-11-18] MEDS: LANOLIN (LANSINOH) 7.5 GM CREAM 1 APPLIC TOPICAL (07:22)
[2021-11-18] MEDS: FAMOTIDINE 20 MG TABLET PO (07:22)
--- NOTE | 2021-11-18 07:30 | PC.NURSE ---
PT introductions made and plan of care discussed per post , pain management, breast feeding, daily care activities and pending discharge to home. PT and spouse both recipients of such instructions and no barriers to learning identified at this time. PT received instructions per one to one discussion, mom baby care guide and demonstrations this shift. PT verbalized understanding of such care.
--- NOTE | 2021-11-18 08:00 | PM.OBDSVD ---
DS: Admitting Diagnosis Discharge Date 11/18/2021 Admitting Diagnosis OB - DS: Summary OB Procedures : None OB Procedures Intrapartum: Spontaneous Vag Delivery OB Procedures: : None Time Spent with Patient Time attestation: Total time spent providing and/or coordinating discharge services: DS: Data Data Completed and Pending Labs on day of discharge: Labs from last 24 hours 11/18/21 11/18/21 04:55 04:55 Hgb 11.0 L Hct 32.3 L Blood Type A Negative Antibody Screen Negative Screen Negative Baby's Blood Type O pos Baby's VANDANA Negative Doses of RhIg Required 1 Discharge Plan Discharge Discharging Clinician: Collin Grey Patient Disposition: Home, Self-Care Activity: as tolerated Diet: as tolerated Discharge Instructions: Education: Mom and Baby Guide Given to: Mother Follow-Up: Call your delivering provider's office for an appointment to be seen in: 4 Weeks Mom and baby should come to the [facility] for the follow-up appointment. Appointment Date/Time: November 20, 2021 at 9:00 am What to expect at your follow-up visit: Blood Pressure Check Call [phone] if you are unable to keep your appointment time. BREAST CARE: * Wear a snug supportive bra. * For engorgement discomfort: Breast Feeding: * Apply warm moist washcloths * Express milk as needed to relieve engorgement * Wear loose clothing Bottle Feeding: * May apply ice packs * For sore nipples: * Identify correct latch-on * Apply warm moist washcloths before and after nursing * Air dry nipples after nursing * May apply Lansinoh cream to nipples PERINEAL CARE: * Until bleeding stops, use your patrice bottle after urinating * Change your pad frequently throughout the day * You may take sitz baths several times a day (fill your bathtub with warm water and soak for 20 minutes.) Do NOT bathe in the water * No tub baths until seen by your physician - You may shower ACTIVITY: * Rest as much as possible. * Do not exercise or lift anything heavier than your baby (such as laundry or other children.) * Avoid stairs or driving as much as possible. * Do not put anything into the vagina. No douching, tampons, or sexual activity until seen by physician. NOTIFY PHYSICIAN IF YOU HAVE ANY QUESTIONS OR IF ANY OF THE FOLLOWING SYMPTOMS OCCUR: * If your perineum becomes red, swollen, or more painful than what you have experienced in the hospital. * If your vaginal bleeding becomes foul smelling. * If your vaginal bleeding becomes more heavy than a period or if your bleeding changes from pink to bright red. However, you may pass an occasional walnut-sized clot once or twice for the first week . * If you experience a sharp, shooting pain in you calves. * If you discover a hard, reddened area on your breast or if you experience flu-like symptoms. * If you have a fever of 100.4 or greater DIET: * Eat regular, well-balanced meals. * Drink plenty of fluids daily. If , drink to thirst. Patient Instructions: Antibiotic Form Stand Alone Forms: General Discharge Information Follow-up/Referrals: Collin Grey MD [Physician] - 3 Weeks Discharge Medications: New ibuprofen 600 mg Tablet 600 mg PO Q6H PRN (Reason: Cramping) Qty: 30 0RF Continued famotidine 20 mg tablet 20 mg PO DAILY Qty: 90 3RF ferrous sulfate 325 mg (65 mg iron) tablet 325 mg PO BID Qty: 120 2RF docusate sodium [Colace] 100 mg capsule 100 mg PO BID Qty: 60 3RF vit-iron fum-folic ac 65 mg iron- 1 mg tablet 1 tablet PO DAILY levothyroxine 50 mcg tablet 50 mcg PO DAILY albuterol sulfate [Proventil HFA] 90 mcg/actuation Hfa Aerosol Inhaler 2 puff inhalation Q6HRT PRN (Reason: Shortness Of Breath) Qty: 1 0RF Date of admission: 11/16/21
--- NOTE | 2021-11-18 10:12 | WPDANLDNPN2 ---
Anes-Prog Note L&D-Neuraxial Date/Time: 11/18/21 10:12 Patient feedback: Patient satisfied with post-operative pain management. Comments: No apparent anesthesia elated complications
[2021-11-18 10:30] VITALS: PULSE 71; RESP 18; TEMP 36.6; O2SAT 100
[2021-11-18] MEDS: RHO(D) IMMUNE GLOBULIN 300 MCG/2 ML SYRINGE IM (13:56)
[2021-11-18] MEDS: MEASLES,MUMPS,RUBELLA VACCINE 0.5 ML VIAL SUB-Q (14:04)
--- NOTE | 2021-11-18 14:28 | PC.NURSE ---
PT received discharge instructions per protocol and verbalized understanding. Follow up appts confirmed
--- NOTE | 2021-11-18 14:34 | PC.NURSE ---
PT discharged to home ambulatory accompanied by spouse and and taken to waiting car. Follow up appts confirmed
[2021-11-20 09:30] VITALS: BP 95/67; PULSE 74; RESP 18; TEMP 37.1; O2SAT 99
== END 2021-11-18 14:34 | disposition home or self-care (01) | DRG 560 ==
LOC: ANHLDR 16:04 → ANHOB2 11-17 15:11
PROVIDERS: Admitting Provider Obstetrics & Gynecology; PCP Family Medicine; Visit Provider Obstetrics & Gynecology
DX: O69.81X0 Labor and delivery complicated by cord around neck, without compression, not applicable or unspecified (principal); Z37.0 Single live birth; Z3A.39 39 weeks gestation of pregnancy; O36.8330 Maternal care for abnormalities of the fetal heart rate or rhythm, third trimester, not applicable or unspecified; O99.892 Other specified diseases and conditions complicating childbirth; Q79.60 Ehlers-Danlos syndrome, unspecified; O99.284 Endocrine, nutritional and metabolic diseases complicating childbirth; E03.9 Hypothyroidism, unspecified; O26.893 Other specified pregnancy related conditions, third trimester; Z67.91 Unspecified blood type, Rh negative
CPT/HCPCS: 36415; 80307; 85014; 85018; 85025; 85461; 86592; 86703; 86850; 86880; 86900; 86901; 86902; 87340; 90384; 90710; A9270; G0432; J2405; J2590; J2790; J2795; J7120

== ENCOUNTER 2023-06-14 12:24 | Outpatient (CLI) | payer OTHER, SELFPAY ==
[2023-06-14 12:55] LABS: Basophils Percent Auto 0.2 % (0.2-1.2); Eosinophils Absolute Auto 0.1 K/mm3 (0-0.3); Eosinophils Percent Auto 1.5 % (0-4.4); Hematocrit 36.3 % (37.0-47.0); Hemoglobin 12.1 g/dL (12.0-15.0); Immature Granulocyte Absolute 0.03 K/mm3 (0.00-0.031); Immature Granulocyte Percent A 0.3 % (0-0.5); Lymphocytes Percent Auto 14.2 % (18.3-44.2); Mean Corpuscular HGB Conc 33.3 g/dl (32-36); Mean Corpuscular Hemoglobin 30.9 pg (26-34); Mean Corpuscular Volume 92.6 fl (80-100); Mean Platelet Volume 8.8 fl (7.4-10.4); Monocytes Absolute Auto 0.4 K/mm3 (0.1-0.6); Monocytes Percent Auto 3.9 % (2.6-8.5); Neutrophils Absolute Auto 7.3 K/mm3 (1.3-6.7); Neutrophils Percent Auto 79.9 % (45.5-73.1); Platelet Count Result 218 k/mm3 (150-375); Red Blood Count 3.92 M/mm3 (4.2-5.4); Red Cell Distribution Width 12.1 % (11.5-14.5); White Blood Count 9.2 K/mm3 (4.5-10.0)
[2023-06-14 13:53] LABS: HIV 1/2 Ab P24 Ag Result Negative (Negative)
[2023-06-14 14:01] LABS: Hepatitis B Surface Antigen Negative (Negative)
[2023-06-14 14:32] LABS: Rapid Plasma Reagin Non-Reactive (NonReactive)
[2023-06-14 18:15] LABS: Rubella IgG Antibody > 120.0 IU/ML
== END 2023-06-14 12:25 | disposition home or self-care (01) ==
PROVIDERS: PCP Family Medicine; Visit Provider Student in an Organized Health Care Education/Training Program
DX: N91.2 Amenorrhea, unspecified (principal)
CPT/HCPCS: 36415; 84702; 85025; 86592; 86644; 86703; 86747; 86762; 86787; 86850; 86900; 86901; 87086; 87340; G0432

== ENCOUNTER 2023-11-06 14:31 | Outpatient (RCR) | payer OTHER, SELFPAY ==
[2023-11-06 15:55] LABS: Basophils Percent Auto 0.2 % (0.2-1.2); Eosinophils Absolute Auto 0.1 K/mm3 (0-0.3); Eosinophils Percent Auto 1.2 % (0-4.4); Hematocrit 26.7 % (37.0-47.0); Hemoglobin 8.9 g/dL (12.0-15.0); Immature Granulocyte Absolute 0.07 K/mm3 (0.00-0.031); Immature Granulocyte Percent A 0.6 % (0-0.5); Lymphocytes Absolute Auto 2.32 K/mm3 (0.9-3.2); Lymphocytes Percent Auto 19.1 % (18.3-44.2); Mean Corpuscular HGB Conc 33.3 g/dl (32-36); Mean Corpuscular Hemoglobin 32.5 pg (26-34); Mean Corpuscular Volume 97.4 fl (80-100); Mean Platelet Volume 9.3 fl (7.4-10.4); Monocytes Absolute Auto 0.5 K/mm3 (0.1-0.6); Neutrophils Absolute Auto 9.1 K/mm3 (1.3-6.7); Neutrophils Percent Auto 74.9 % (45.5-73.1); Platelet Count Result 195 k/mm3 (150-375); Red Blood Count 2.74 M/mm3 (4.2-5.4); Red Cell Distribution Width 12.8 % (11.5-14.5); White Blood Count 12.2 K/mm3 (4.5-10.0)
[2023-11-06 16:05] LABS: Glucose 1 Hour PP 50gm Dose 128 mg/dL
[2023-11-06 16:46] LABS: HIV 1/2 Ab P24 Ag Result Negative (Negative)
[2023-11-07 13:14] LABS: Rapid Plasma Reagin Non-Reactive (NonReactive)
[2023-11-07] MEDS: RHO(D) IMMUNE GLOBULIN 300 MCG/2 ML SYRINGE IM (17:43)
== END 2024-02-04 23:59 | disposition home or self-care (01) ==
LOC: ANHLAB 14:31
PROVIDERS: PCP Family Medicine; Visit Provider Obstetrics & Gynecology
DX: Z11.4 Encounter for screening for human immunodeficiency virus [HIV] (principal); Z11.3 Encounter for screening for infections with a predominantly sexual mode of transmission; O36.0190 Maternal care for anti-D [Rh] antibodies, unspecified trimester, not applicable or unspecified; Z3A.00 Weeks of gestation of pregnancy not specified
CPT/HCPCS: 36415; 82947; 85025; 85461; 86592; 86703; 86850; 86900; 86901; 90384; 96372; G0432; J2790

== ENCOUNTER 2024-01-18 11:08 | Inpatient (IN) | payer OTHER, SELFPAY ==
[2024-01-18] VITALS (59 sets, daily range): BP systolic 88–140; BP diastolic 39–103; PULSE 62–102; RESP 16–20; TEMP 35.9–37.1; O2SAT 92–100; BMI 25.8
[2024-01-18] MEDS: AMPICILLIN 2 GM/NS 100 ML 2 GM/100 ML BAG IVPB (12:10)
[2024-01-18] MEDS: LACTATED RINGERS 1,000 ML 125 ML IV CONT (12:10)
[2024-01-18 12:11] LABS: Basophils Percent Auto 0.2 % (0.2-1.2); Eosinophils Absolute Auto 0.1 K/mm3 (0-0.3); Eosinophils Percent Auto 1.1 % (0-4.4); Hematocrit 28.9 % (37.0-47.0); Hemoglobin 9.9 g/dL (12.0-15.0); Immature Granulocyte Absolute 0.07 K/mm3 (0.00-0.031); Immature Granulocyte Percent A 0.7 % (0-0.5); Lymphocytes Absolute Auto 1.72 K/mm3 (0.9-3.2); Lymphocytes Percent Auto 16.4 % (18.3-44.2); Mean Corpuscular HGB Conc 34.3 g/dl (32-36); Mean Corpuscular Volume 96.3 fl (80-100); Mean Platelet Volume 9.4 fl (7.4-10.4); Monocytes Absolute Auto 0.7 K/mm3 (0.1-0.6); Monocytes Percent Auto 6.6 % (2.6-8.5); Neutrophils Absolute Auto 7.9 K/mm3 (1.3-6.7); Platelet Count Result 163 k/mm3 (150-375); Red Cell Distribution Width 13.4 % (11.5-14.5); White Blood Count 10.5 K/mm3 (4.5-10.0)
--- NOTE | 2024-01-18 12:16 | LDADM ---
This patient, Sherrill Samson, was admitted to Labor/Delivery/Recovery 104 on 01/18/24 at 11:08. Plans for labor, pain management and were discussed with patient. Patient/family oriented to hospital policies and general routines including ID bracelet, bed and alarms, visiting hours, pain management, procedures, bathroom and other care routines, personal items, smoking policy, room service/diet and guest tray routines, infant security routines, and visiting hours. Patient/Family are encouraged to report perceived risks to care and to ask questions if they do not understand what they are told or what they should do. See OBIX for further documentation.
--- NOTE | 2024-01-18 12:38 | PM.IMHP ---
H&P: HPI History of Present Illness Date/Time: 01/18/24 12:38 Chief Complaint: Leakage of fluid Narrative: Sherrill is a 38yo @ 39.5wks who presented to L&D with leakage of fluid since approximately 0920am. She reports irregular contractions, good movement. No vaginal bleeding. She has had regular care. Her is complicated by: - AMA...MFM - Rh-...Rhogam - Sean-Danlos syndrome...Seeing new specialist. - Hypothyroid...Synthroid/assess q trimester - GBS positive Review of Systems Constitutional: Constitutional: Denies chills, Denies fever(s) and Denies headache(s) Eyes: Eyes: Denies change in vision ENT: Denies headache(s) Cardiovascular: Cardiovascular: Denies chest pain and Denies dyspnea Respiratory: Respiratory: Denies dyspnea Genitourinary: Genitourinary: Denies abnormal vaginal bleeding and Reports vaginal discharge Neurologic: Denies headache(s) Psychiatric: Psychiatric: Denies anxiety and Denies depression [facility] Past Medical History Medical History Sean-Danlos disease Encounter for IUD insertion 12/18/17 leonardo insertion 12/28/20 leonardo removal History of hypotension History of tachycardia Hypothyroidism Kidney stones Migraines Rh incompatibility Stomach ulcer Ulnar nerve compression with released. Surgical History Surgical History H/O cystoscopy 07/28/19 H/O dilation and curettage History of carpal tunnel surgery x3 History of extraction of renal calculus Family History Family History Grandparent Cerebrovascular accident paternal grandmother paternal grandfather maternal grandmother maternal grandfather Mother Multiple sclerosis Cervical cancer Other Family history of depression Social History Social History Social History: the patient is . She has 2 children at home and is with her 3rd child. She has had 3 miscarriages. The patient is the homemaker. The patient stated that she rarely used alcohol. She quit smoking 6-7 years ago and occasionally uses marijuana. Code status full code Smoking status: Former smoker Tobacco type: cigarettes Smoking end date: 10/08/14 Alcohol intake: never Substance use: never Substance use type: marijuana Other substance usage details: daily Do You Feel Safe in your Home?: Yes Lack of Transportation: No Lack of Food: Never True Current Housing: I Have Housing Concerned About Future Housing: No Difficulty Paying Gas/Electric Bills: No Difficulty Paying for Meds: No Currently Unemployed: No Education: High School Diploma/GED Difficulty w/ Childcare or Family Care: No Living arrangements: with family Additional living arrangements comments: Occupation/Education: unemployed Gender identity (if verbalized by the patient): Female Sexual Orientation (if Verbalized by the Patient): Straight or Heterosexual Spiritual care concerns: No Meds Home Medications and Allergies Home Medications Medication Instructions Recorded Confirmed Type albuterol sulfate 90 mcg/actuation 2 puff inhalation Q6HRT PRN 07/22/21 01/15/24 Rx aerosol inhaler (Proventil HFA) Shortness Of Breath #1 g vitamins-iron fumarate 65 1 tablet PO DAILY #90 tabs 07/24/23 01/18/24 Rx mg iron-folic acid 1 mg tablet levothyroxine 50 mcg capsule 50 mcg PO DAILY #90 caps 10/22/23 01/15/24 Rx ferrous sulfate 325 mg (65 mg 325 mg PO TID 11/12/23 01/18/24 History iron) tablet Allergies Allergy/AdvReac Type Severity Reaction Status Date / Time doxycycline AdvReac Unknown Other Verified 01/15/24 13:48 Vital Signs Vital Signs - 24 hr 01/18/24 12:13 01/18/24 12:22 01/18/24 12:30 Pulse Rate 71 73
[2024-01-18] MEDS: OXYTOCIN 30 UNITS/NS 500 ML 30 UNITS/500 ML BAG IV CONT (13:00)
[2024-01-18 13:03] LABS: HIV 1/2 Ab P24 Ag Result Negative (Negative)
--- NOTE | 2024-01-18 13:17 | WPDHPUPDATE1 ---
History and Physical Update Update Date/Time: 01/18/24 13:17 History and Physical has been reviewed, including an updated exam of the patient. There are NO changes in the patient's condition. Risks, benefits, and alternatives have been discussed and questions answered. Patient agrees to proceed with primary section due to breech malpresentation.
[2024-01-18] MEDS: ACETAMINOPHEN 500 MG TABLET 1000 MG PO (13:29)
[2024-01-18] MEDS: ceFAZolin 2 GM/D5W 50 ML 2 GM/50 ML BAG IVPB (13:29)
[2024-01-18] MEDS: ONDANSETRON INJ 4 MG/2 ML VIAL IV PUSH (13:32)
[2024-01-18] MEDS: FAMOTIDINE 20 MG/2 ML VIAL IV PUSH (13:32)
[2024-01-18] MEDS: AZITHROMYCIN 500 MG/NS 250 ML 500 MG/250 ML BAG 250 MG IVPB (13:39)
[2024-01-18 14:33] LABS: Rapid Plasma Reagin Non-Reactive (NonReactive)
--- NOTE | 2024-01-18 15:13 | W.PM.OBCSD ---
OB - Delivery Note Procedure Delivery date: 01/18/24 Pre-op diagnosis: Breech Presentation (with SROM) and Positive Group B Strep (GBS) Post-op Diagnosis: Same Induction method: None Prior to decision for section, ACOG/SMFM labor guidelines were considered and discussed with the patient and staff. Decision made to proceed with the section.: Yes Procedure Performed: Primary Primary branch: low cervical, transverse Surgeon: Stacey Castano MD Anesthesia type: Spinal Description of Procedure/Findings: Male infant, breech presentation, meconium fluid noted. Normal fallopian tubes and ovaries. Good hemostasis at end of case. Specimen: Yes (placenta) Estimated Blood Loss: 620 Complications: No immediate complications Condition: Stable Disposition: Floor Baby Date of : 01/18/24 Time of : 14:31 Gestational Age by Date: 39 (.5) Infant gender: Male Weight (pounds): 7 Weight (ounces): 7 presentation: breech Placenta delivery description: Expressed Cord Vessel Description: 3 Vessels and Delayed Cord Clamping score one minute: 9 score five minutes: 9 Narrative: She was counseled on all risks and benefits in detail. She was taken to the operating room where spinal was placed. She was then prepped and draped in the normal sterile fashion. She received 2g Ancef and Azithromycin 500mg IV and a time out was performed. A Pfannenstiel incision was made in the skin and carried down to the underlying fascia. The fascia was nicked on either side of the midline and the fascial incision was extended laterally and superiorly using curved Santamaria scissors. The fascia was then elevated using Kim clamps and the underlying rectus muscles were dissected off the fascia, superiorly and inferiorly. The rectus muscles were then in the midline and the peritoneum was entered bluntly. Once adequate exposure was obtained, a Mobius self retractor was placed within the abdomen. A bladder flap was created. A low transverse incision was made on the lower uterine segment and clear fluid was noted. The hips/buttocks were brought to the hysterotomy and the baby was delivered in the normal breech maneuvers without complications. The infant had spontaneous cry and the mouth and nose were bulb suctioned. Delayed cord clamping was performed. The cord was the doubly clamped and cut and the infant was handed off to the awaiting pediatric nurse. A segment of the cord was collected for cord gases. The remaining cord blood was collected for typing. With Pitocin infusing, the placenta delivered with gentle traction on the cord without complications. The uterus was then cleared out of all clots and debris using a clean, moist lap. The hysterotomy was then repaired in a running, interlocking fashion using 0 Vicryl. A second layer imbricating suture was then made using 0 Vicryl. Two additional figure of eight stitches with 0 Vicryl were placed on the left and mid of the hysterotomy and it was found to be hemostatic and good uterine tone was noted. The bilateral adnexa were examined and found to be normal. The pelvis was cleared of all clots and fluid. The Mobius retractor was removed from the abdomen. The peritoneum, muscle, and fascia were examined and made hemostatic with Bovie cautery. The fascia was then repaired using a 0 Vicryl suture in a running fashion. The subcutaneous tissue was then irrigated and made hemostatic with Bovie cautery. The skin was then closed using 4-0 Monocryl in a running subcuticular fashion. A clean Mepilex dressing was placed over the incision. Sponge, lap, needle and instrument counts were correct at the end of the procedure x2. The patient tolerated the procedure well and was taken to recovery in a stable condition.
--- NOTE | 2024-01-18 15:54 | WPDANESEPP ---
Anes - Eval Pre Procedure Procedure: Operation Date: 01/18/24 14:00 Proposed Procedures p Section - Stacey Castano MD Date/Time: 01/18/24 1330 Preop Diagnosis: breech presentation Pre Op Diagnosis: labor Patient Data Age: 38 Gender: F Height: 1.5 m Weight: 58 kg Last Vital Signs Pulse 88 01/18/24 15:50 BP 128/81 01/18/24 15:50 Pulse Ox 97 01/18/24 15:50 O2 Del Method Room Air 01/18/24 12:13 Allergies Allergy/AdvReac Type Severity Reaction Status Date / Time doxycycline AdvReac Unknown Other Verified 01/15/24 13:48 Home Medications Medication Instructions Recorded Confirmed Type albuterol sulfate 90 mcg/actuation 2 puff inhalation Q6HRT PRN 07/22/21 01/15/24 Rx aerosol inhaler (Proventil HFA) Shortness Of Breath #1 g vitamins-iron fumarate 65 1 tablet PO DAILY #90 tabs 07/24/23 01/18/24 Rx mg iron-folic acid 1 mg tablet levothyroxine 50 mcg capsule 50 mcg PO DAILY #90 caps 10/22/23 01/15/24 Rx ferrous sulfate 325 mg (65 mg 325 mg PO TID 11/12/23 01/18/24 History iron) tablet Laboratory Tests 01/18/24 12:02 WBC 10.5 H K/mm3 (4.5-10.0) RBC 3.00 L M/mm3 (4.2-5.4) Hgb 9.9 L g/dL (12.0-15.0) Hct 28.9 L % (37.0-47.0) MCV 96.3 fl (80-100) MCH 33.0 pg (26-34) MCHC 34.3 g/dl (32-36) RDW 13.4 % (11.5-14.5) Plt Count 163 k/mm3 (150-375) MPV 9.4 fl (7.4-10.4) Immature Gran % (Auto) 0.7 H % (0-0.5) Neut % (Auto) 75.0 H % (45.5-73.1) Lymph % (Auto) 16.4 L % (18.3-44.2) [place] % (Auto) 6.6 % (2.6-8.5) Eos % (Auto) 1.1 % (0-4.4) Baso % (Auto) 0.2 % (0.2-1.2) Lymph # (Auto) 1.72 K/mm3 (0.9-3.2) [place] # (Auto) 0.7 H K/mm3 (0.1-0.6) Eos # (Auto) 0.1 K/mm3 (0-0.3) Baso # (Auto) 0.0 K/mm3 (0.0-0.1) Abs Immat Gran (auto) 0.07 H K/mm3 (0.00-0.031) Absolute Neuts (auto) 7.9 H K/mm3 (1.3-6.7) Absolute Nucleated RBC 0.000 K/mm3 (0.0-0.012) Nucleated RBC % 0.0 % (0.0-0.2) RPR Non-reactive (NonReactive) HIV 1&2 Ab/P24 Ag 4thGn Negative (Negative) Blood Type A Negative Antibody Screen Positive Antibody Identification Passive Due to RH Imm Glob Antigen Identification Cancelled VANDANA, IgG Interpret Negative VANDANA, Poly Interpret Not Performed VANDANA, Complement Interp Negative Patient hx anesthesia problems: none Family hx anesthesia problems: none Results Review: All pre-operative results and documents have been reviewed as part of the pre-operative evaluation. [facility], [facility] Past Medical History Medical History Sean-Danlos disease Encounter for IUD insertion 12/18/17 leonardo insertion 12/28/20 leonardo removal History of hypotension History of tachycardia Hypothyroidism Kidney stones Migraines Rh incompatibility Stomach ulcer Ulnar nerve compression with released. Surgical History Surgical History H/O cystoscopy 07/28/19 H/O dilation and curettage History of carpal tunnel surgery x3 History of extraction of renal calculus Family History Family History Grandparent Cerebrovascular accident paternal grandmother paternal grandfather maternal grandmother maternal grandfather Mother Multiple sclerosis Cervical cancer Other Family history of depression Social History Social History Social History: the patient is . She has 2 children at home and is with her 3rd child. She has had 3 miscarriages. The patient is the homemaker. The patient stated that she rarely used alcohol. She quit smoking 6-7 years ago and occasionally uses marijuana. Code status full code Smoking status: Former s
[2024-01-18 17:07] LABS: OBXCEM ROM Plus Positive
--- NOTE | 2024-01-18 17:50 | OBPPTRN ---
Patient transferred to post room #291 via stretcher. Support person present. Oriented to unit, room, information board, rooming in, admission packet and security measures. Patient verbalizes understanding.
[2024-01-18] MEDS: KETOROLAC 15 MG/ML VIAL (*BKC) IV PUSH (19:37)
[2024-01-18] MEDS: ACETAMINOPHEN 325 MG TABLET 650 MG PO (19:37)
[2024-01-18] MEDS: LIDOCAINE 5% PATCH 1 PATCH TRANSDERM (19:38)
[2024-01-18] MEDS: DEXTROSE 5%/0.45% SOD CHL 1,000 ML 125 ML IV CONT (20:40)
[2024-01-19] MEDS: KETOROLAC 15 MG/ML VIAL (*BKC) IV PUSH ×3 (01:35→13:23)
[2024-01-19] MEDS: ACETAMINOPHEN 325 MG TABLET 650 MG PO ×4 (01:35→19:35)
[2024-01-19] MEDS: diphenhydrAMINE HCl INJ 50 MG/ML VIAL 25 MG IV PUSH (01:40)
[2024-01-19 03:50] VITALS: BP 93/51; PULSE 71; RESP 16; TEMP 36.2; O2SAT 99
[2024-01-19] MEDS: KCL 20 MEQ/D5/0.45% SOD CHL 1,000 ML 125 ML IV CONT (04:17)
[2024-01-19 05:44] LABS: Basophils Percent Auto 0.2 % (0.2-1.2); Eosinophils Percent Auto 0.1 % (0-4.4); Hemoglobin 7.9 g/dL (12.0-15.0); Immature Granulocyte Absolute 0.08 K/mm3 (0.00-0.031); Immature Granulocyte Percent A 0.5 % (0-0.5); Lymphocytes Percent Auto 10.2 % (18.3-44.2); Mean Corpuscular HGB Conc 34.3 g/dl (32-36); Mean Corpuscular Hemoglobin 33.2 pg (26-34); Mean Corpuscular Volume 96.6 fl (80-100); Mean Platelet Volume 9.6 fl (7.4-10.4); Monocytes Absolute Auto 0.8 K/mm3 (0.1-0.6); Neutrophils Absolute Auto 13.2 K/mm3 (1.3-6.7); Platelet Count Result 148 k/mm3 (150-375); Red Blood Count 2.38 M/mm3 (4.2-5.4); Red Cell Distribution Width 13.2 % (11.5-14.5); White Blood Count 15.7 K/mm3 (4.5-10.0)
[2024-01-19] MEDS: DOCUSATE SODIUM 100 MG CAPSULE PO ×2 (07:58→16:57)
[2024-01-19] MEDS: SIMETHICONE 80 MG TAB.CHEW PO ×3 (07:59→16:57)
[2024-01-19] MEDS: MULTIVIT/MIN/PREN/FOL AC/IRON TABLET 1 TAB PO (07:59)
[2024-01-19] MEDS: LEVOTHYROXINE SODIUM 50 MCG TABLET PO (07:59)
[2024-01-19 08:00] VITALS: BP 82/51; PULSE 68; RESP 16; TEMP 36.4; O2SAT 100
--- NOTE | 2024-01-19 09:28 | PM.OBPNVD ---
OB - PN: Subj Subjective Date/time seen: 01/19/24 10:23 Narrative: POD#1 Sherrill reports doing well today. Her bleeding is court interpreter. Her pain is controlled. She is tolerating regular diet, voiding, passing gas, and ambulating without issues. She denies any issues with her incision. She is breast feeding. She would like her son circumcised. OB - PN: Obj Data Labs 01/19/24 05:30 Labs: Laboratory Results - last 24 hr 01/18/24 01/18/24 11:25 12:02 WBC 10.5 H RBC 3.00 L Hgb 9.9 L Hct 28.9 L MCV 96.3 MCH 33.0 MCHC 34.3 RDW 13.4 Plt Count 163 MPV 9.4 Immature Gran % (Auto) 0.7 H Neut % (Auto) 75.0 H Lymph % (Auto) 16.4 L [place] % (Auto) 6.6 Eos % (Auto) 1.1 Baso % (Auto) 0.2 Lymph # (Auto) 1.72 [place] # (Auto) 0.7 H Eos # (Auto) 0.1 Baso # (Auto) 0.0 Abs Immat Gran (auto) 0.07 H Absolute Neuts (auto) 7.9 H Absolute Nucleated RBC 0.000 Nucleated RBC % 0.0 Membranes Rupture Rom plus positive Membranes Rup Com Yes RPR Non-reactive HIV 1&2 Ab/P24 Ag 4thGn Negative Blood Type A Negative Antibody Screen Positive Antibody Identification Passive Due to RH Imm Glob Antigen Identification Cancelled VANDANA, IgG Interpret Negative VANDANA, Poly Interpret Not Performed VANDANA, Complement Interp Negative OB - PN A/P Assessment and Plan (1) Breech presentation: Qualifiers: Fetus number: single or unspecified fetus Qualified Code(s): O32.1XX0 - Maternal care for breech presentation, not applicable or unspecified Code(s): O32.1XX0 - Maternal care for breech presentation, not applicable or unspecified Status: Acute (2) S/P primary low transverse : Code(s): Z98.891 - History of uterine scar from previous surgery Status: Acute Plan day: 1 Plan: routine care Comments: - PO pain meds - Regular diet - Ambulation and hydration encouraged - Continue putting baby to breast q2-3hr - Circumcision performed without issue - Venofer 400mg IV once Time Spent With Patient Time: Total time spent is greater than 50% in coordination of care (as documented) at patient's floor/unit and/or counseling patient: Review of Systems Constitutional: Constitutional: Denies chills, Denies fever(s) and Denies headache(s) Eyes: Eyes: Denies change in vision ENT: Denies dizziness and Denies headache(s) Cardiovascular: Cardiovascular: Denies chest pain, Denies palpitations and Denies dyspnea Respiratory: Respiratory: Denies cough and Denies dyspnea Gastrointestinal: Gastrointestinal: Denies nausea and Denies vomiting Genitourinary: Comments: normal bleeding Neurologic: Denies dizziness and Denies headache(s) Endocrine: Endocrine: Denies palpitations Exam Const: General: cooperative, healthy appearing, comfortable and no acute distress Orientation/consciousness: patient oriented x3 Resp: Effort & Inspection: normal respiratory effort Auscultation: clear to auscultation bilaterally Cardio: Rate: regular rate GI: Inspection: non-distended and incision (covered with clean dressing) GI Palp: Yes abdominal tenderness (appropriate) and Yes Soft to palpation Auscultation: normal bowel sounds : Other: fundus firm Skin: General skin exam: normal color Neuro: General: patient oriented x3 Extrem: General: normal to inspection Psych: Appearance: grossly normal Affect: normal affect Attitude: cooperative
[2024-01-19] MEDS: IRON SUCROSE COMPLEX 400 MG in SODIUM CHLORIDE 0.9% IV 250 ML 108 MG IVPB (10:11)
--- NOTE | 2024-01-19 10:38 | WPDANLDPN2 ---
Anes-Prog Note L&D Date/Time: 01/19/24 10:38 Comfortable throughout: section Neuraxial method: spinal Epidural/Spinal procedure site: clean & non-tender Neuro status: Neuro function grossly intact. patient reports Neuro function and sensation returned to baseline. Cardiovascular status: normal Respiratory status: normal Airway patency: baseline Mental status: baseline Post-Op hydration status: normal Vital Signs: Last Vital Signs Temp 36.4 C 01/19/24 08:00 Pulse 68 01/19/24 08:00 Resp 16 01/19/24 08:00 BP 82/51 L 01/19/24 08:00 Pulse Ox 100 01/19/24 08:00 O2 Del Method Room Air 01/18/24 17:20 Pain score (VAS): 3/10 I/O: Intake & Output 01/18/24 01/19/24 01/19/24 23:59 07:59 15:59 Intake Total 540 2150 Output Total 375 1500 Balance 165 650 Post-procedural complaints: pruritis moderate, treatment effective Patient feedback: Patient satisfied with anesthetic care.
--- NOTE | 2024-01-19 10:39 | WPDANLDNPN2 ---
Anes-Prog Note L&D-Neuraxial Date/Time: 01/19/24 10:39 Neuraxial medications: intrathecal PF morphine Opiod-related complaints: pruritis moderate, treatment effective Patient feedback: Patient satisfied with post-operative pain management.
[2024-01-19 11:15] VITALS: BP 88/56; PULSE 70; RESP 16; TEMP 36.7; O2SAT 100
[2024-01-19] MEDS: RHO(D) IMMUNE GLOBULIN 300 MCG/2 ML SYRINGE IM (13:24)
[2024-01-19] MEDS: POLYSACCHARIDE IRON COMPLEX 150 MG CAPSULE PO (16:57)
[2024-01-19] MEDS: IBUPROFEN 600 MG TABLET PO (19:35)
[2024-01-19 19:40] VITALS: BP 106/73; PULSE 92; RESP 16; TEMP 36.8; O2SAT 99
[2024-01-19] MEDS: LIDOCAINE 5% PATCH 1 PATCH TRANSDERM (21:51)
[2024-01-20] MEDS: ACETAMINOPHEN 325 MG TABLET 650 MG PO ×2 (02:11→08:31)
[2024-01-20] MEDS: IBUPROFEN 600 MG TABLET PO ×2 (02:11→08:31)
[2024-01-20] MEDS: LEVOTHYROXINE SODIUM 50 MCG TABLET PO (07:15)
--- NOTE | 2024-01-20 07:15 | PM.OBDSVD ---
DS: Admitting Diagnosis Discharge Date 01/20/24 Admitting Diagnosis SROM Breech malpresentation DS: Discharge Diagnosis Discharge Diagnosis (1) S/P primary low transverse : Code(s): Z98.891 - History of uterine scar from previous surgery Status: Acute (2) Anemia: Qualifiers: Anemia type: iron deficiency Iron deficiency anemia type: unspecified iron deficiency Qualified Code(s): D50.9 - Iron deficiency anemia, unspecified Code(s): D64.9 - Anemia, unspecified Status: Acute OB - DS: Summary OB Procedures : Ultrasound OB Procedures Intrapartum: low cervical, transverse OB Procedures: : Other (Venofer 400mg IV once) Peripartum Data Infant Delivery Method: Section Procedures: Procedures Operation Date: 01/18/24 14:00 Actual Procedure Side Surgeon p Section Stacey Castano MD complications: none [place] 1: Gender: Male Disposition of : home Status at Discharge Functional status at discharge: independent ambulation Overall status at discharge: patient is back to baseline Time Spent with Patient Time attestation: Total time spent providing and/or coordinating discharge services: Exam Const: General: cooperative, healthy appearing, comfortable and no acute distress Orientation/consciousness: patient oriented x3 Resp: Effort & Inspection: normal respiratory effort Auscultation: clear to auscultation bilaterally Cardio: Rate: regular rate GI: Inspection: non-distended and incision (covered with clean dressing) GI Palp: No abdominal tenderness and Yes Soft to palpation Auscultation: normal bowel sounds : Other: fundus firm Skin: General skin exam: normal color Neuro: General: patient oriented x3 Extrem: General: normal to inspection Psych: Appearance: grossly normal Affect: normal affect Attitude: cooperative DS: Data Data Completed and Pending Pending studies at discharge: Pending at discharge 01/18/24 14:32 Surgical [PTH] Routine Labs on day of discharge: Labs from last 24 hours 01/19/24 01/18/24 01/18/24 05:30 12:02 11:25 WBC 15.7 H 10.5 H RBC 2.38 L 3.00 L Hgb 7.9 L 9.9 L Hct 23.0 L 28.9 L MCV 96.6 96.3 MCH 33.2 33.0 MCHC 34.3 34.3 RDW 13.2 13.4 Plt Count 148 L 163 MPV 9.6 9.4 Immature Gran % (Auto) 0.5 0.7 H Neut % (Auto) 84.0 H 75.0 H Lymph % (Auto) 10.2 L 16.4 L [place] % (Auto) 5.0 6.6 Eos % (Auto) 0.1 1.1 Baso % (Auto) 0.2 0.2 Lymph # (Auto) 1.60 1.72 [place] # (Auto) 0.8 H 0.7 H Eos # (Auto) 0.0 0.1 Baso # (Auto) 0.0 0.0 Abs Immat Gran (auto) 0.08 H 0.07 H Absolute Neuts (auto) 13.2 H 7.9 H Absolute Nucleated RBC 0.000 0.000 Nucleated RBC % 0.0 0.0 Membranes Rupture Rom plus positive Membranes Rup Com Yes RPR Non-reactive HIV 1&2 Ab/P24 Ag 4thGn Negative Blood Type A Negative A Negative Antibody Screen Positive Positive Antibody Identification TNP Passive Due to RH Imm Glob Antigen Identification TNP Cancelled VANDANA, IgG Interpret TNP Negative VANDANA, Poly Interpret TNP Not Performed VANDANA, Complement Interp TNP Negative Screen Pending Baby's Blood Type A pos Baby's VANDANA Positive Doses of RhIg Required Pending Discharge Plan Discharge Attending physician on discharge: Stacey Castano Discharging Clinician: Stacey Castano Patient Disposition: Home, Self-Care Activity: may shower and pelvic rest Diet: regular Discharge Instructions: No heavy lifting over 15 pounds for 6 weeks Remove incision dressing on 02/24/24 Patient Instructions: (DC) Stand Alone Forms: General Discharge Information Follow-up/Referrals: Stacey Castano MD [Physician] - 4 Weeks Discharge Medications: New acetaminophen 325 mg Tablet 650 mg PO Q6H Qty: 60 0RF hydrocodone-aceta
[2024-01-20 08:25] VITALS: BP 105/72; PULSE 77; RESP 16; TEMP 37.2; O2SAT 100
[2024-01-20] MEDS: SIMETHICONE 80 MG TAB.CHEW PO ×2 (08:31→13:14)
[2024-01-20] MEDS: MULTIVIT/MIN/PREN/FOL AC/IRON TABLET 1 TAB PO (08:31)
[2024-01-20] MEDS: DOCUSATE SODIUM 100 MG CAPSULE PO (08:31)
[2024-01-20] MEDS: POLYSACCHARIDE IRON COMPLEX 150 MG CAPSULE PO (08:31)
--- NOTE | 2024-01-20 10:00 | PC.NURSE ---
Patient was given the opportunity to view the discharge video Mother & Baby Care, The First Two Weeks and to ask questions. Patient declined viewing the video and has been given the mother/baby guide for home reference, this is the patient's fourth child.
--- NOTE | 2024-01-20 12:15 | PC.NURSE ---
Consulted with mother concerning needs and she shared her ability to independently latch infant optimally without pain. Mother is feeding appropriately for growth of and understands stimulating to eat if needed. Infant has had appropriate feedings in the last 24 hours meets the outcomes for weight, output, blood sugar and jaundice at this time. Reinforced understanding of milk production, transition of milk, signs of adequate intake, transition of stool, prevention/relief of engorgement, community resources, and when to call a provider using the resource of the feeding sheet along with the mom and baby guide. We discussed feeding baby first before her toddler breastfeeds to be sure baby gets all the nutrition he needs. Mother is hoping the toddler will wean soon but feels like the nighttime feedings will still continue some. Mother voiced understanding of the information shared, is confident to continue effectively her at home, when to call for assistance, denies any additional assistance or education at this time. Reported to the Primary RN.
[2024-01-20 13:10] VITALS: BP 113/69
[2024-01-20] MEDS: HYDROcodone/acetaminophen (*CRX) 5-325 MG TABLET 1 TAB PO (13:14)
[2024-01-21 11:58] VITALS: BP 107/74; PULSE 72; RESP 20; TEMP 37.1; O2SAT 99
--- NOTE | 2024-01-21 13:56 | P.PNAN_ITS ---
Anes-Prog Note L&D Date/Time: 01/21/24 13:56 Comfortable throughout: section Neuraxial method: spinal Epidural/Spinal procedure site: clean & non-tender Neuro status: Neuro function grossly intact. Cardiovascular status: normal Respiratory status: normal Airway patency: baseline Mental status: baseline Post-Op hydration status: normal Vital Signs: Last Vital Signs Temp 37.1 C 01/21/24 11:58 Pulse 72 01/21/24 11:58 Resp 20 01/21/24 11:58 BP 107/74 01/21/24 11:58 Pulse Ox 99 01/21/24 11:58 O2 Del Method Room Air 01/18/24 17:20 Pain score (VAS): 01/17 Pt presents to LDR with c/o neck pain/headache 01/17. Improves lying flat. Spoke with [employer] who cared for pt during c section and reportedly the spinal was uncomplicated, easy x1 attempt. she stated that at time of delivery pt complained of Pain to neck, most likely from air under diaphragm and referred Pain to neck. This was explained to the patient and conservative treatment recommended at this time. Rest, fluids, OTC excedrin, ibuprofen. Pt verbalized understanding. Post-procedural complaints: other (neck pain and headache) Patient feedback: Patient satisfied with anesthetic care.
== END 2024-01-20 13:45 | disposition home or self-care (01) | DRG 540 ==
LOC: ANHOB2 01-20 10:45 → ANHLDR 01-21 13:51 → ANHOB2 01-21 13:51
PROVIDERS: Admitting Provider Obstetrics & Gynecology; PCP Family Medicine; Visit Provider Obstetrics & Gynecology
PROC: 10D00Z1 Extraction of Products of Conception, Low, Open Approach (ICD-10-PCS; CPT 59514; principal; 2024-01-18 14:00)
DX: O32.1XX0 Maternal care for breech presentation, not applicable or unspecified (principal); Z37.0 Single live birth; Z3A.39 39 weeks gestation of pregnancy; O99.824 Streptococcus B carrier state complicating childbirth; O77.0 Labor and delivery complicated by meconium in amniotic fluid; O26.893 Other specified pregnancy related conditions, third trimester; Z67.91 Unspecified blood type, Rh negative; O99.284 Endocrine, nutritional and metabolic diseases complicating childbirth; E03.9 Hypothyroidism, unspecified; O99.892 Other specified diseases and conditions complicating childbirth; Q79.60 Ehlers-Danlos syndrome, unspecified; D64.9 Anemia, unspecified; O99.02 Anemia complicating childbirth
CPT/HCPCS: 36415; 84112; 85025; 85461; 86592; 86703; 86850; 86880; 86900; 86901; 88307; 90384; A9270; G0432; J0290; J0456; J0690; J1100; J1200; J1596; J1885; J2274; J2371; J2405; J2590; J2790; J3480; J7050; J7120

== ENCOUNTER 2024-02-21 13:23 | Outpatient (CLI) | payer OTHER, SELFPAY ==
--- NOTE | 2024-02-21 13:43 | ECG_ITS ---
Test Date: 2024-02-21 13:59:01 Measurements Intervals [place] Rate: 54 P: 60 RI: 140 QRS: 17 QRSD: 86 T: 57 QT: 435 QTc: 412 Interpretive Statements SINUS BRADYCARDIA POSSIBLE RIGHT VENTRICULAR CONDUCTION DELAY BORDERLINE ECG No previous ECG available for comparison Electronically Signed On 02-21-2024 14:13:37 CDT by Ralph Hernandez D.O.
[2024-02-21 14:06] LABS: Basophils Absolute Auto 0.1 K/mm3 (0.0-0.1); Basophils Percent Auto 0.7 % (0.2-1.2); Eosinophils Absolute Auto 0.3 K/mm3 (0-0.3); Eosinophils Percent Auto 4.5 % (0-4.4); Hematocrit 41.6 % (37.0-47.0); Hemoglobin 13.6 g/dL (12.0-15.0); Immature Granulocyte Absolute 0.02 K/mm3 (0.00-0.031); Immature Granulocyte Percent A 0.3 % (0-0.5); Lymphocytes Absolute Auto 2.69 K/mm3 (0.9-3.2); Lymphocytes Percent Auto 35.9 % (18.3-44.2); Mean Corpuscular HGB Conc 32.7 g/dl (32-36); Mean Corpuscular Hemoglobin 31.6 pg (26-34); Mean Corpuscular Volume 96.7 fl (80-100); Mean Platelet Volume 8.9 fl (7.4-10.4); Monocytes Absolute Auto 0.4 K/mm3 (0.1-0.6); Monocytes Percent Auto 5.1 % (2.6-8.5); Neutrophils Percent Auto 53.5 % (45.5-73.1); Platelet Count Result 230 k/mm3 (150-375); Red Cell Distribution Width 12.2 % (11.5-14.5); White Blood Count 7.5 K/mm3 (4.5-10.0)
[2024-02-21 14:18] LABS: Alanine Aminotransferase 15 U/L (6-35); Alkaline Phosphatase 95 U/L (38-126); Anion Gap 9 mmol/L (4-12); Aspartate Amino Transferase 22 U/L (14-36); Bilirubin,Total 0.4 mg/dL (0.2-1.3); Blood Urea Nitrogen 12 mg/dL (7-17); Calcium 8.5 mg/dL (8.4-10.2); Carbon Dioxide 28 mmol/L (22-30); Chloride 104 mmol/L (98-107); Estimated Glomerular Filt Rate > 60; Glucose 92 mg/dL (65-110); Potassium 3.2 mmol/L (3.4-5.0); Sodium 141 mmol/L (137-145)
[2024-02-21 14:23] LABS: NT Pro B Type Natriuretic Pept 220 pg/mL (19.9-100)
[2024-02-21 15:05] LABS: Iron 61 ug/dL (37-170)
[2024-02-21 15:15] LABS: Percent Iron Saturation 21 % (20-50)
== END 2024-02-21 13:24 | disposition home or self-care (01) ==
LOC: ANHLAB 13:25
PROVIDERS: PCP Family Medicine; Visit Provider Obstetrics & Gynecology
DX: D64.9 Anemia, unspecified (principal); R01.1 Cardiac murmur, unspecified; R42 Dizziness and giddiness; R94.31 Abnormal electrocardiogram [ECG] [EKG]
CPT/HCPCS: 36415; 80053; 82728; 83540; 83550; 83880; 84443; 85025; 93005

== ENCOUNTER 2024-03-05 10:02 | Outpatient (CLI) | payer OTHER, SELFPAY ==
--- NOTE | 2024-03-05 10:08 | ECHO_ITS ---
Patient Info Name: Sherrill Samson Age: 38 years : 1985 Gender: Female Ht: 59 in Wt: 105 lbs BSA: 1.41 m2 HR: 67 bpm BP: 110 / 81 mmHg Technical Quality: Good Exam Date: 03/05/2024 10:17 AM Exam Location: Echo Lab Patient Status: Outpatient Admit Date: 03/05/2024 Staff Ordering Physician: Stacey Castano MD Tenterer: Jeannette Mckeon RDCS Attending Provider: Stacey Castano MD Referring Physician: Eyad GUTIERRES; Exam Type: CA echo doppler color flow Study Info Indications - POSTPARDUM - HYPOTENSION R01.1 - Cardiac murmur, unspecified R42 - Dizziness and giddiness Complete two-dimensional, color flow and Doppler transthoracic echocardiogram is performed. Strain analysis performed. Summary 1. Complete two-dimensional, color flow and Doppler transthoracic echocardiogram is performed. 2. The left ventricle is normal size with normal wall thickness. The LV systolic function is normal with LVEF calculated to be 60-65%. Normal diastolic function. 3. The RV size and systolic function is normal. 4. No significant valvular pathologies found on this study. Left Ventricle The left ventricle is normal size with normal wall thickness. The LV systolic function is normal with LVEF calculated to be 60-65%. Normal diastolic function. Global strain is -16.7%. Right Ventricle The RV size and systolic function is normal. Left Atria The left atrial size is normal. Right Atria The right atrial size is normal. Aortic Valve The aortic valve is trileaflet. There is no aortic stenosis or regurgitation. Pulmonic Valve The pulmonic valve appears normal. There is no pulmonic valve regurgitation. Mitral Valve The mitral valve leaflets are thin and pliable. There is no mitral regurgitation seen. Tricuspid Valve The tricuspid valve is normal. There is trivial tricuspid regurgitation. There is insufficient TR jet to measure PASP. Pericardium/Pleural There is no pericardial effusion seen. Inferior Vena Cava Normal inferior vena cava with >50% collapse upon inspiration consistent with normal right atrial pressure, 3 mmHg. Aorta The aortic root at the level of the sinus of Valsalva is normal in diameter measuring 2.5 cm. Left Ventricular Outflow Tract Name Value Normal LVOT Doppler LVOT Peak Gradient 4 mmHg LVOT Mean Gradient 2 mmHg LVOT VTI 19 cm LVOT VTI/AV VTI Ratio 0.9 Pulmonic Valve Name Value Normal RVOT Doppler RVOT Peak Gradient 3 mmHg PV Doppler PV Peak Gradient 4 mmHg Mitral Valve Name Value Normal MV Doppler MV [place] 789 cm/s2
== END 2024-03-05 10:03 | disposition home or self-care (01) ==
LOC: ANHCARD 10:05
PROVIDERS: PCP Family Medicine; Visit Provider Obstetrics & Gynecology
DX: R01.1 Cardiac murmur, unspecified (principal); R42 Dizziness and giddiness
CPT/HCPCS: 93306